=== PATIENT | female | born 1940 | race Caucasian/White ===

== ENCOUNTER 2025-01-08 08:39 | Outpatient (CLI) | payer MEDICARE, BC, SELFPAY ==
--- NOTE | 2025-01-08 09:00 | CRLHL7_ITS ---
For Patients: As a result of the Century Cures Act, medical imaging exams and procedure reports are released immediately into your electronic medical record. You may view this report before your referring provider. If you have questions, please contact your health care provider. INDICATION: GROSS HEMATURIA TECHNIQUE: CT abdomen and pelvis urogram without and with 100 cc Isovue 370 intravenous contrast. Contrast images were obtained in the nephrographic and delayed phases. COMPARISON: None. FINDINGS: KIDNEYS: The unenhanced images demonstrate no kidney or ureteral stones. The kidneys are normal in caliber and demonstrate normal uptake and excretion of IV contrast. No masses. The renal collecting systems and ureters are symmetrical, normal in caliber, and without evidence of mass or filling defect. URINARY BLADDER: The bladder wall measures up to 3.2 millimeters. Mild trabeculation of the bladder wall normal. No bladder stone. OTHER: Extensive calcification along the right lateral basilar pleura. Cardiomegaly. Simple intrahepatic cysts are present measuring 1.3 cm and 1.2 cm. Adrenal glands normal. Incidental calcification in the spleen. No splenomegaly. Normal gallbladder. Normal pancreas. Atherosclerotic changes. No adenopathy. Normal ovaries. Calcified exophytic right posterior uterine fibroid measures 2.8 cm. Degenerative facet arthropathy mid and lower lumbar spine with grade 1 degenerative spondylolisthesis of L3 on L4 and L4 on L5. IMPRESSION: 1. The bladder wall is mildly thickened with associated trabeculation. No renal, ureteral or bladder stone. No hydronephrosis. 2. 2.8 cm calcified exophytic right posterior uterine fibroid. 3. Incidental simple intrahepatic cysts. 4. Extensive chronic calcification of the right posterolateral pleura. Please note that all CT scans at this facility use dose modulation, iterative reconstruction, and/or weight-based dosing when appropriate to reduce radiation dose to as low as reasonably achievable. Dictated by Mayo Duarte MD @ 01/08/2025 12:54:25 PM (Electronically Signed)
[2025-01-08 09:33] LABS: Creatinine* 0.7 mg/dL (0.5-1.5); Estimated Glomerular Filt Rate 86 ml/min
== END 2025-01-08 08:40 | disposition home or self-care (01) ==
PROVIDERS: PCP Internal Medicine; Visit Provider Urology
DX: R31.0 Gross hematuria (principal); D25.9 Leiomyoma of uterus, unspecified; K76.89 Other specified diseases of liver; J94.8 Other specified pleural conditions
CPT/HCPCS: 36415; 74178; 82565; Q9967